=== PATIENT | male | born 1995 | race African-American/Black ===

== ENCOUNTER 2018-08-20 10:36 | Emergency (ER) | payer OTHER ==
--- NOTE | 2018-08-20 11:00 | ER Document Report ---
ED Psych Disorder / Suicide - General Chief Complaint: Suicidal Ideation Stated Complaint: SUICIDAL IDEATION Time Seen by Provider: 08/20/18 10:45 Notes: Patient is a resident in our local [facility] since November. This morning, he attempted to hang himself with a sheet. He says he is hearing voices telling him that he should hang himself. He thinks he may have been unconscious. Patient has a history of mental illness and says he has been diagnosed with ADHD , bipolar disorder, and? Schizophrenia. He had been on Seroquel and Abilify and some other medications, but has not had any of these since he has been incarcerated. Patient denies any other symptoms or complaints. TRAVEL OUTSIDE OF THE [place] IN LAST 30 DAYS: No Past Medical History - Social History Smoking Status: Unknown if Ever Smoked Family History: Reviewed & Not Pertinent Patient has suicidal ideation: Yes Patient has homicidal ideation: No Psychiatric Medical History: Reports: Hx Attention Deficit Hyperactivity Disorder, Hx Bipolar Disorder, Hx Schizophrenia Review of Systems - Review of Systems Notes: REVIEW OF SYSTEMS: CONSTITUTIONAL : Denies fever. EENT: Denies eye, ear, nose or mouth or throat pain or other symptoms. Denies sore throat. Denies difficulty swallowing. Denies any change in his voice. CARDIOVASCULAR: Denies chest pain. RESPIRATORY: Denies cough, chest congestion, or shortness of breath. GASTROINTESTINAL: Denies abdominal pain or nausea, vomiting, or diarrhea. GENITOURINARY: Denies difficulty or painful urinating, urinary frequency, blood in urine. MUSCULOSKELETAL: Denies back or neck pain. Denies joint pain or swelling. SKIN: Denies rash or skin lesions. NEUROLOGICAL: Not sure if he had a loss of consciousness. Has some headache now. Denies sensory loss or motor deficits. ALL OTHER SYSTEMS REVIEWED AND NEGATIVE. Physical Exam - Vital signs Vitals: Temp Pulse Resp BP Pulse Ox 98.4 F 61 17 129/74 H 100 08/20/18 13:31 08/20/18 13:31 08/20/18 13:31 08/20/18 13:31 08/20/18 13:31 Interpretation: Normal - Notes Notes: PHYSICAL EXAMINATION: GENERAL: Well-appearing, in no acute distress. No signs of trauma to his neck. HEAD: Atraumatic, normocephalic. EYES: Pupils equal round and reactive to light, extraocular movements intact. ENT: oropharynx clear without exudates. Moist mucous membranes. Voice sounds normal to me. NECK: Normal range of motion, supple. No significant neck tenderness. No abrasions, ecchymosis, abrasions, or any other signs of trauma to the neck. LUNGS: Breath sounds clear and equal bilaterally. HEART: Regular rate and rhythm without murmurs. ABDOMEN: Soft, nontender. No guarding or rebound. No masses. BACK: No tenderness throughout entire back. EXTREMITIES: Normal range of motion without pain. NEUROLOGICAL: Normal speech, normal gait. Normal sensory, motor, and reflex exams. Awake, alert, and oriented x3. Cranial nerves normal. PSYCH: Normal mood, normal affect. SKIN: Warm, dry, no rashes. Course - Re-evaluation Re-evalutation: 08/20/18 18:13 Patient was evaluated by mental health who feels that he can be discharged for outpatient follow-up, as needed. - Vital Signs Vital signs: Temp Pulse Resp BP Pulse Ox 98.4 F 61 17 129/74 H 100 08/20/18 13:31 08/20/18 13:31 08/20/18 13:31 08/20/18 13:31 08/20/18 13:31 - Laboratory Result Diagrams: 08/20/18 11:20 08/20/18 11:20 Laboratory results interpreted by me: 08/20/18 08/20/18 11:20 11:20 Urine Urobilinogen 2.0 H Salicylates < 1.0 L Acetaminophen < 10 L Discharge - Discharge Clinical Impression: Suicidal ideation, Bipolar disorder Condition: Stable Disposition: HOME, SELF-CARE Additional Instructions: SUICIDAL IDEATION: Suicidal ideation is a common medical term for thoughts about suicide, which may be as detailed as a formulated plan, without the suicidal act itself. Although most people who undergo suicidal ideation do not commit suicide, some go on to make suicide attempts. The range of suicidal ideation varies greatly from fleeting to detailed planning, role playing, and unsuccessful attempts. While thoughts about suicide are common, most people do not carry out serious actions to commit suicide. Based upon your evaluation and discussion with you, we do not believe you are currently at risk to act upon your thoughts of suicide. You have agreed to return to the Emergency Department, at any time , if you feel inclined to act upon your suicidal thoughts. Bipolar Disorder Bipolar disorder is also called manic-depressive disorder. Depression alternates with brain hyperactivity called christine. Each phase lasts from several days to a few weeks. We don't know exactly what causes bipolar disorder , but it's treatable. During the "manic phase," you may feel elated and energetic. You may have racing thoughts, rapid speech, increased activity, and grandiose ideas. During this time, you may not realize how poor your judgement is. Inappropriate spending, drug abuse, excessive alcohol use, marriage problems, and irresponsible sexual behavior are common during the manic phase. During the "depressive phase," you might feel depressed, guilty, worthless , fatigued, and unable to concentrate. You might have thoughts of suicide. Good treatments are available for bipolar disorder. [place] is a classic drug for bipolar disorder, and is still often useful. If the manic phase is very mild, an antidepressant alone can be prescribed. If the manic phase is very severe, an antipsychotic medicine (such as Haldol) may be needed. The treatment must be matched to your symptoms, so it's important to work closely with your psychiatric care provider. Contact your physician, the hospital emergency center, crisis line, or your counsellor if you are losing control or having self-destructive thoughts. FOLLOW-UP CARE: If you have been referred to a physician for follow-up care, call the physician s office for an appointment as you were instructed or within the next two days. If you experience worsening or a significant change in your symptoms, notify the physician immediately or return to the Emergency Department at any time for re-evaluation. Take the medications prescribed here today. Follow-up with [facility] health [facility] as an outpatient. Prescriptions: Buspirone HCl [Buspar 5 mg Tablet] 1 tab PO BID #14 tab Divalproex Sodium [Depakote ER 500 mg Tab.sr] 500 mg PO Q12 #14 tab.sr.24h
[2018-08-20 11:32] LABS: ABSOLUTE EOSINOPHILS # (AUTO) 0.1 10^3/uL (0.0-0.6); ABSOLUTE LYMPHOCYTES (AUTO) 1.8 10^3/uL (0.5-4.7); ABSOLUTE MONOCYTES (AUTO) 0.4 10^3/uL (0.1-1.4); ABSOLUTE NEUT (AUTO) 3.8 10^3/uL (1.7-8.2); BASOPHILS % (AUTO) 0.6 % (0-2); EOSINOPHILS % (AUTO) 1.2 % (0-6); HEMATOCRIT 43.2 % (37.9-51.0); HEMOGLOBIN 15.2 g/dL (13.5-17.0); LYMPHOCYTES % (AUTO) 29.8 % (13-45); MEAN CORPUSCULAR HEMOGLOBIN 32.2 pg (27.0-33.4); MEAN CORPUSCULAR HGB CONC 35.3 g/dL (32.0-36.0); MEAN CORPUSCULAR VOLUME 92 fl (80-97); MONOCYTES % (AUTO) 6.2 % (3-13); PLATELET COUNT 218 10^3/uL (150-450); RED BLOOD COUNT 4.72 10^6/uL (4.35-5.55); RED CELL DISTRIBUTION WIDTH 12.7 % (11.5-14.0); SEGMENTED NEUTROPHILS % (AUTO) 62.2 % (42-78); TOTAL CELLS COUNTED % (AUTO) 100 %; WHITE BLOOD COUNT 6.2 10^3/uL (4.0-10.5)
[2018-08-20 11:33] LABS: APPEARANCE,URINE CLEAR; BILIRUBIN,URINE NEGATIVE (NEGATIVE); COLOR,URINE YELLOW; GLUCOSE, URINE NEGATIVE (NEGATIVE); KETONES,URINE NEGATIVE (NEGATIVE); LEUKOCYTE ESTERASE,URINE NEGATIVE (NEGATIVE); NITRITE,URINE NEGATIVE (NEGATIVE); PROTEIN,URINE NEGATIVE (NEGATIVE); URINE SPECIFIC GRAVITY 1.014
[2018-08-20 11:51] LABS: URINE AMPHETAMINES SCREEN NEGATIVE; URINE BARBITURATES SCREEN NEGATIVE; URINE BENZODIAZEPINES SCREEN NEGATIVE; URINE COCAINE SCREEN NEGATIVE; URINE MARIJUANA (THC) SCREEN NEGATIVE; URINE METHADONE SCREEN NEGATIVE; URINE PHENCYCLIDINE SCREEN NEGATIVE
[2018-08-20 11:52] LABS: ACETAMINOPHEN < 10 ug/mL (10-30); ALANINE AMINOTRANSFERASE 28 U/L (21-72); ALBUMIN 4.6 g/dL (3.5-5.0); ALCOHOL < 10 mg/dL (NONE DETECTED); ALKALINE PHOSPHATASE 64 U/L (38-126); ANION GAP 9 (5-19); ASPARTATE AMINO TRANSFERASE 27 U/L (17-59); BILIRUBIN,DIRECT 0.4 mg/dL (0.0-0.4); BILIRUBIN,TOTAL 0.8 mg/dL (0.2-1.3); BLOOD UREA NITROGEN 11 mg/dL (7-20); CALCIUM 9.8 mg/dL (8.4-10.2); CARBON DIOXIDE 26 mmol/L (22-30); CHLORIDE 105 mmol/L (98-107); GLUCOSE 88 mg/dL (75-110); POTASSIUM 4.2 mmol/L (3.6-5.0); SALICYLATE < 1.0 mg/dL (2.0-20.0); SODIUM 140.1 mmol/L (137-145); TOTAL PROTEIN 7.9 g/dL (6.3-8.2)
--- NOTE | 2018-08-20 12:27 | EKG REPORT ---
SEVERITY:- NORMAL ECG - SINUS RHYTHM : Confirmed by: Romie Bowen 20-Aug-2018 12:25:45
[2018-08-20 13:32] VITALS: BP 129/74
--- NOTE | 2018-08-20 14:44 | PSYCHOLOGICAL NOTE ---
Psych Note - Psych Note Psych Note: Chart review at 5874. 2919 blood draw for labs. 1118 giving urine sample. Evaluation from [id number]. Reason for Consult: SI attempt Contact Permissions: [facility] Patient is a 23 year old male who was brought to the ED today via EMS and accompanied by LE from prison due to SI attempt via hanging self with bed sheet at 0949. He reported previous diagnoses of Bipolar and ADHD. He acknowledged he had been on a bunch of different medications but the ones he took for the longest time were: Concerta, Seroquel, Abilify, and Didectamine (he said not sure if it is the correct word or pronounced right) Patch. He stated I was on Ritalin when I was younger. 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 He reported he had outpatient services at what sounds like [facility] ([facility] [place] [place] where he went upstairs for therapy 2-3 times a week which tapered down, as well as got medications. He stated I aged out of Foster Care at age 17, my mom lied to me and at first I didnt think I needed medications. When asked if he had any negative side effects from previous medications he responded with I had twitches or ticks when I was younger, my shoulder, I would blink hard (provided example, said it was when he was in elementary school), I bit my clothes a lot and I smelled my hand. He admitted he has been in and out of Retirement for a long time and has tried to see the MH provider. He noted I need to get back to my [place], my dad just . When asked what County he said [place] and then went on a tangent about hearing voices telling him to hurt others and himself, he often talks to self in his cell, he is not from this realm, he is a soul savior, there is a soul society, his Spirit God is named Gage (he looked to his right side of the bed) who is always by his side and tells him to take himself out to kill the flesh, that food and other things we put into our bodies close our third eye which prevents us from seeing things, so he hasnt eaten in 3 days. He went on to describe his Spirit God as having a sword, shield and wearing a crown. When asked about his suicide attempt he stated I tied one end of the sheet around my neck, the other end around the bed, it would have worked if the knot didnt slip, I could be home right now, in my city, my soul city, soul society, not on earth. He stated I am not over it though, I cant give up, I cant stop it, I wont give up. He said When my mind is made up its made up. When asked if he had a delfina on his neck he said I dont know and showed his neck which did not have any markings on it. Note he was able to switch from having a linear and organized conversation with this clinician about his history, then endorsed the delusions and then was able to go right back into a linear and organized conversation about moving forward with medication recommendations. When asked if he needed anything from his nurse he said something to eat since I have not eaten in 3 days (so able to express needs/wants). Patient was alert and oriented to person, place, time and situation. Mood was euthymic with congruent affect. He endorsed SI/HI via hearing voices, did not provide plans and said he did try to hang himself. He did not have any markings around his neck (this clinician observed neck when patient showed it). He did not appear to be responding to internal stimuli even though he endorsed it (he talked about it so much, described it in detail, almost too much, he told it like a story versus living in it and believing it the way someone would if truly in active psychosis) as evidenced by fair eye contact, being able to switch from topic to topic, answering questions appropriately when addressed and carrying on dialogue conversation during those times, engaging in evaluation , following directives and commands (going to the bathroom to provide urine sample, sitting still for blood draw) and expressing needs/wants (requested meal ). Thought processes were organized and linear (even in his endorsed delusion). Conversational speech was within normal limits for rate, tone and prosody. Intellectual abilities are estimated to be average. Insight, judgment and impulse control were fair as evidenced by his ability to describe his delusion, not seem scared or worried about it, and still be able to interact with staff appropriately. COUNTS INCLUDE 234 BEDS AT THE [facility] Behavioral Health team [facility] contacted the [facility] to inquire if they have Depakote in their formulary. He spoke to the nurse who stated she felt this was all a game by patient to get back to the County ( [place]) he is from. She stated he is being transferred to [facility] and that he need not be informed of that yet. She confirmed the prison does have Depakote and most other older medications in their formulary. Diagnosis: 296.80 (F31.9) Unspecified Bipolar and Related Disorder by history per patient Medication recommendations made by the psychiatric medical provider, Dr. Hina MD., includes: Provide scripts Add Depakote 500MG twice a day for mood stabilization Add Buspar 5MG twice a day for depression/anxiety/sleep Impression/Plan: Patient is cleared from acute psychiatric services. Provided medication recommendations and scripts to take back to prison. Recommendation to send patient back to prison where he can be on suicide watch if necessary. He did not have tamayo on his neck from trying to hang himself. He endorsed SI/HI, hallucinations and delusions however talked about them as if telling a story versus living and experiencing it as someone who is in active psychosis would. He was also able to be organized and linear when providing his history, discussion of obtaining medication recommendations, able to follow directives/ commands (provide urine sample, sit still for blood draw) and able to express needs/wants. Consulted with Dr. Whitney regarding the management and care of patient. ED Physician in agreement with recommendations.
== END 2018-08-20 13:35 | disposition home or self-care (01) ==
LOC: ER 10:36
DX: R45.851 Suicidal ideations (principal); R44.0 Auditory hallucinations; F31.9 Bipolar disorder, unspecified
CPT/HCPCS: 36415; 80053; 80307; 81001; 85025; 93005; 93010; 99285